=== PATIENT | male | born 1985 | race African-American/Black ===

== ENCOUNTER 2016-09-28 16:14 | Emergency (ER) | payer SELFPAY ==
[2016-09-28 17:09] VITALS: BP 142/92
--- NOTE | 2016-09-28 17:14 | EDM.PDOC ---
ED HPI ENT - General Chief Complaint: ENT Problem Stated Complaint: TOOTH PAIN Time Seen by Provider: 09/28/16 17:02 Source of Information: Reports: Patient History Limitations: Reports: No limitations - History of Present Illness INITIAL COMMENTS - FREE TEXT/NARRATIVE: The patient presents with dental pain. Today he was eating some rangel and he bit down and broke his left upper canine tooth. He has no fever or chills. He has no dentist here. [place]. Timing/Duration: Reports: Hour(s): Severity: severe Location: Reports: mouth Quality: Reports: Sharp Improves with: Reports: None Worsens with: Reports: None Associated Symptoms: Reports: no other symptoms - Related Data Allergies/ADRs: Allergies Allergy/AdvReac Type Severity Reaction Status Date / Time No Known Allergies Allergy Verified 09/28/16 17:09 Home Meds: Home Meds Penicillin V Potassium [IJD: Penicillin V Potassium] 500 mg PO .EVERY 6 HOURS # 40 tab 09/28/16 [Rx] oxyCODONE HCl/Acetaminophen [Percocet 5-325 mg Tablet] 1 - 2 each PO Q6HR PRN # 20 tablet 09/28/16 [Rx] Past Medical History - Past Health History Medical/Surgical History: Denies Medical/Surgical History ED ROS ENT - Review of Systems Review Of Systems: See Below Constitutional: Reports: no symptoms HEENT: Reports: Dental pain Respiratory: Reports: no symptoms Cardiovascular: Reports: No symptoms Endocrine: Reports: no symptoms GI/Abdominal: Reports: No symptoms : Reports: no symptoms Musculoskeletal: Reports: no symptoms ED EXAM, ENT - Physical Exam Exam: See Below Exam Limited By: No limitations General Appearance: alert, no apparent distress Ears: normal external exam Nose: normal inspection Mouth/Throat: Other (Fracture left upper cannine tooth. With tenderness) Course - Vital Signs Last Recorded V/S: Last Vital Signs Temp 99.4 F 09/28/16 17:07 Pulse 76 09/28/16 17:07 Resp 16 09/28/16 17:07 BP 142/92 H 09/28/16 17:07 Pulse Ox 100 09/28/16 17:07 Departure - Departure Time of Disposition: 17:15 Disposition: Home, Self-Care 01 Condition: good Clinical Impression: Tooth fracture Qualifiers: Encounter type: initial encounter Fracture type: closed Qualified Code(s): S02.5XXA - Fracture of tooth (traumatic), initial encounter for closed fracture Prescriptions: oxyCODONE HCl/Acetaminophen [Percocet 5-325 mg Tablet] 1 - 2 each PO Q6HR PRN # 20 tablet PRN Reason: Pain Penicillin V Potassium [IJD: Penicillin V Potassium] 500 mg PO .EVERY 6 HOURS # 40 tab Forms: ED Department Discharge Additional Instructions: Follow up with a dentist as soon as you can.
[2016-09-28] MEDS ORDERED: Acetaminophen/oxyCODONE 325-5 MG Tab ONE (18:04)
== END 2016-09-28 18:15 | disposition home or self-care (01) ==
LOC: JD.ED 16:14
DX: S02.5XXA Fracture of tooth (traumatic), initial encounter for closed fracture (principal)
CPT/HCPCS: 99283; A9270